=== PATIENT | male | born 1990 | race Caucasian/White ===

== ENCOUNTER 2017-01-13 22:36 | Emergency (ER) | payer OTHER ==
[2017-01-13 22:42] VITALS: BP 171/111; PULSE 90; RESP 16; TEMP 98.1; O2SAT 98
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
[2017-01-14] MEDS ORDERED: EC-N500T PO (00:13)
[2017-01-14] MEDS ORDERED: CYCL5TAB PO (00:13)
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
[2017-01-14] MEDS ORDERED: ACETAMINOPHEN/HYDROcodone 325 MG/5 MG TAB PO ONE (01:30)
== END 2017-01-14 01:37 | disposition home or self-care (01) ==
LOC: NEPC 22:36
DX: S09.90XA Unspecified injury of head, initial encounter (principal); M54.2 Cervicalgia; V43.52XA Car driver injured in collision with other type car in traffic accident, initial encounter; Z79.899 Other long term (current) drug therapy
CPT/HCPCS: 70450; 72125; 99285